=== PATIENT | male | born 1945 | race Caucasian/White ===

== ENCOUNTER → 2016-07-02 | Outpatient (CLI) | payer OTHER | LOC: BMCIMAGING 11:45 | PROVIDERS: ATTEND Emergency Medicine | DX: M79.645 Pain in left finger(s) (principal); W54.0XXA Bitten by dog, initial encounter; R93.6 Abnormal findings on diagnostic imaging of limbs ==

== ENCOUNTER 2017-04-02 15:05 | Emergency (ER) | payer OTHER ==
[2017-04-02 15:11] VITALS: BP 137/85; PULSE 60; RESP 14; TEMP 98.6; O2SAT 96
[2017-04-02] MEDS ORDERED: NAPROXEN SODIUM 220 MG TAB PO ONE (15:20)
--- NOTE | 2017-04-02 15:20 | EDPHY ---
General Narrative: CHIEF COMPLAINT: Fall, left lower injury HISTORY OF PRESENT ILLNESS: Patient complains of left shoulder pain. He was skiing at [place] today. He reports going up a hill due to the condition of the snow. He had his skins on his skis. He says that he fell, landing directly on the left shoulder. He did not strike his head or lose consciousness. He had immediate onset of pain in the left shoulder with inability to move it. No numbness or tingling distally. No chest or back pain. No abdominal pain. No injury to the right arm or either leg. Right-hand dominant. He was evaluated there at the scene by medics. The medics felt that he was dislocated. The arm was immobilized he drove himself to the emergency department. EN route, he felt the arm shift and was then able to move the shoulder. At this time he has a mild pain at rest, moderate when he attempts to move it. No other associated complaints or modifying factors. ESTABLISHED ORTHOPEDIST: Dr. Sanabria REVIEW OF SYSTEMS: Ten systems reviewed and are negative unless otherwise noted in the HPI PAST MEDICAL HISTORY: Arthritis, back pain PAST SURGICAL HISTORY: No recent surgery SOCIAL HISTORY: Nonsmoker. 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 Brisk cap refill Neurological: A&O, light sensation to the dorsum of the hand intact. No wrist drop, wrist and elbow strength symmetric Skin: Warm and dry, no rash. No petechiae or purpura Extremities: Tenderness of the left anterior shoulder joint. No tenderness of the clavicle. No tenderness of the elbow, hand or left anatomic snuffbox. Range of motion of the left shoulder is intact but painful. No step-off or deformity. Psychiatric: Mood and affect normal DIFFERENTIAL DIAGNOSES: Including but not limited to fracture, sprain, strain, dislocation, fracture dislocation MDM: 3:20 p.m. Left shoulder pain status post fall while skiing a pills. Patient describes a possible subluxation versus dislocation that reduced prior to arrival. At time of examination, there is no step-off or deformity. He is able to range the shoulder with anterior pain. He is neurovascular intact distally. I have ordered x-ray of the shoulder. I have ordered naproxen. 4:10 p.m. X-ray as read by me reveals no acute fracture dislocation. I re-evaluated the patient and his pain continues to improve. Suspect a sprain with possibility of subluxation prior to hospital arrival. He will be placed in a sling for comfort. Recommend [id number] anti-inflammatories and or Tylenol. He will contact his established orthopedist for outpatient follow-up. We discussed ED precautions. We discussed removing the sling periodically for range of motion. He is comfortable with this plan and discharged home stable condition. SUPERVISION: This patient was independently evaluated without direct involvement of or examination by the attending physician. ED Precautions: Worsening pain. Erythema, edema, cyanosis, pallor, paresthesia or anesthesia. - History Smoking Status: Former smoker - Objective Vital Signs: Initial Vital Signs Temperature (C) 98.6 F 04/02/17 15:08 Heart Rate 60 04/02/17 15:08 Respiratory Rate 14 04/02/17 15:08 Blood Pressure 137/85 H 04/02/17 15:08 O2 Sat (%) 96 04/02/17 15:08 O2 Delivery Mode Room Air Allergies/Adverse Reactions: No Known Allergies Allergy (Verified 12/19/15 16:37) Home Medications: Medication Instructions Recorded Aspirin [Aspirin 325 mg (*)] 325 mg PO DAILY 12/15/15 Herbals/Supplements -Info Only 1 ea PO DAILY 12/15/15 Lovastatin 10 mg PO DAILY 12/15/15 Multivitamins [Multivitamin (*)] 1 each PO DAILY 12/15/15 Acetaminophen [Tylenol 325mg (*)] 650 mg PO Q4 PRN #0 tab 12/17/15 Diclofenac Sodium 04/02/17 Medications Given: Discontinued Medications Naproxen (Aleve) 220 mg PO ONCE ONE Stop: 04/02/17 15:21 Last Admin: 04/02/17 16:00 Dose: 220 mg Departure - Departure Disposition: Home, Routine, Self-Care Clinical Impression: Sprain of shoulder, left Qualifiers: Encounter type: initial encounter Shoulder sprain type: unspecified sprain Qualified Code(s): S43.402A - Unspecified sprain of left shoulder joint, initial encounter Acute shoulder pain Qualifiers: Laterality: left Qualified Code(s): M25.512 - Pain in left shoulder Condition: Good Instructions: Shoulder Sprain (ED) Additional Instructions: 1. Anti-inflammatories and Tylenol [id number] as needed 2. Contact established orthopedist for outpatient follow-up next week 3. ED precautions as discussed Referrals: Leroy Sanabria MD [Medical Doctor] - As per Instructions
== END 2017-04-02 16:54 | disposition home or self-care (01) ==
DX: S43.402A Unspecified sprain of left shoulder joint, initial encounter (principal); Z79.82 Long term (current) use of aspirin; Z87.891 Personal history of nicotine dependence; V00.321A Fall from snow-skis, initial encounter; Y92.89 Other specified places as the place of occurrence of the external cause; Y99.8 Other external cause status; Y93.23 Activity, snow (alpine) (downhill) skiing, snowboarding, sledding, tobogganing and snow tubing

== ENCOUNTER → 2018-02-01 | Outpatient (CLI) | payer OTHER | LOC: FIMAGING 10:54 | DX: Z13.9 Encounter for screening, unspecified (principal); Z87.891 Personal history of nicotine dependence ==